=== PATIENT | female | born 1955 | race Caucasian/White ===

== ENCOUNTER 2019-12-20 17:09 | Emergency (ER) | payer MEDICARE, SELFPAY ==
[2019-12-20 17:11] VITALS: BP 178/86; PULSE 79; RESP 20; TEMP 36.5; O2SAT 99; BMI 37.0
--- NOTE | 2019-12-20 17:18 | DI.RAD.S_ITS ---
PROCEDURE: XR CHEST 2V INDICATIONS: Cough,SOB TECHNIQUE: 2 views of the chest were acquired. COMPARISON: None. FINDINGS: Surgical changes and devices: None. Lungs and pleura: Lungs are mildly hyperlucent and hyperinflated but clear. No pleural effusions or pneumothorax. Mediastinum: Mediastinal contours demonstrate mild central arterial prominence, no central venous congestion, and a chronic moderate size hiatal hernia. Heart size is normal. Bones and chest wall: No suspicious bony abnormalities. Soft tissues appear unremarkable. IMPRESSION: 1. Changes of mild emphysema. 2. No acute cardiopulmonary disease. 3. Moderate-sized chronic hiatal hernia. Dictated by: Gabriela Soto M.D. on 12/20/2019 at 17:33 Approved by: Gabriela Soto M.D. on 12/20/2019 at 17:39
[2019-12-20 17:58] LABS: Influenza A - CEPHEID Flu A NEGATIVE (NEGATIVE); Influenza B - CEPHEID Flu B NEGATIVE (NEGATIVE)
--- NOTE | 2019-12-20 18:36 | ED_ITS ---
HPI - General Adult General Chief complaint: Upper Respiratory Symptoms Stated complaint: LUNGS ARE PRODUCING MUCUS STIFF NECK COUGH Time Seen by Provider: 12/20/19 18:04 Source: patient Mode of arrival: Ambulatory Limitations: no limitations History of Present Illness HPI narrative: Six days of flu-like symptoms. Cough and chest congestion. Low- grade fevers at home. Concern for COVID-19. Related Data Previous Rx's Medication Instructions Recorded amoxicillin 500 mg PO TID 5 Days #15 cap 12/20/19 Allergies Allergy/AdvReac Type Severity Reaction Status Date / Time No Known Drug Allergies Allergy Verified 12/20/19 17:18 Review of Systems Constitutional Constitutional: Reports fatigue and Reports fever(s) Cardiovascular Cardiovascular: Denies chest pain and Denies dyspnea Respiratory Respiratory: Reports chest congestion, Reports cough and Denies dyspnea Gastrointestinal Gastrointestinal: Denies vomiting Integumentary/Breasts Skin/Breast: Denies rash Neurologic Neurologic: Denies behavioral changes Psychiatric Psychiatric: Denies behavioral changes Endocrine Endocrine: Reports fatigue Hematologic/Lymphatic Hematologic/Lymphatic: Denies easy bleeding and Denies easy bruising Patient History Medical History Patient denies medical problems (Acute) Social History Smoking Status: Former smoker Smoking Status: Former smoker alcohol intake frequency: 3 or more drinks per day Alcohol type: wine Substance Use Type: does not use Exam Initial Vital Signs Initial Vital Signs: Vital Signs Temperature 97.7 F 12/20/19 17:11 Pulse Rate 79 12/20/19 17:11 Respiratory Rate 20 12/20/19 17:11 Blood Pressure 178/86 H 12/20/19 17:11 Pulse Oximetry 99 12/20/19 17:11 Const General: cooperative, comfortable and well developed Limitations: mental status not altered HENMT Head: normal to inspection and normocephalic Resp Effort & Inspection: normal respiratory effort Auscultation: clear to auscultation bilaterally Cardio Rate: regular rate Rhythm: regular rhythm GI Inspection: non-distended Palpation: soft Skin Lesions: no lesions Rashes: no rashes Neuro General: alert, awake and oriented x3 Cognition: normal cognition Speech: speech normal Extrem General: normal to inspection and capillary refill normal Psych Appearance: grossly normal and well kempt Course Orders Ordered: ED Orders 12/20/19 17:18 Chest [XR chest 2V] Stat 12/20/19 17:20 Influenza A & B (PCR) Stat Vital Signs Vital signs: Vital Signs - 8 hr 12/20/19 17:11 Temperature 97.7 F Pulse Rate 79 Respiratory Rate 20 Blood Pressure 178/86 H Pulse Oximetry 99 Medical Decision Making Lab Data Lab results reviewed: Yes I reviewed the patient's lab results. Labs: Lab Results 12/20/19 Range/Units 17:20 Influenza A (RT-PCR) Flu a negative (NEGATIVE) Influenza B (RT-PCR) Flu b negative (NEGATIVE) Imaging Data Chest x-ray: Radiologist's Impression: [address] [address] XRay Report Signed Patient: Brenda Finley VMR#: [id number] : 3Acct:[id number] Age/Sex: 64 / FDate of Service: 12/20/19 Loc: ED Accession Number: [id number] Procedure: XR chest 2V Ordering Provider: Rachel Sewell MD PROCEDURE: XR CHEST 2V INDICATIONS: Cough,SOB TECHNIQUE: 2 views of the chest were acquired. COMPARISON: None. FINDINGS: Surgical changes and devices: None. Lungs and pleura: Lungs are mildly hyperlucent and hyperinflated but clear. No pleural effusions or pneumothorax. Mediastinum: Mediastinal contours demonstrate mild central arterial prominence, no central venous congestion, and a chronic moderate size hiatal hernia. Heart size is normal. Bones and chest wall: No suspicious bony abnormalities. Soft tissues appear unremarkable. IMPRESSION: 1. Changes of mild emphysema. 2. No acute cardiopulmonary disease. 3. Moderate-sized chronic hiatal hernia. Dictated by: Gabriela Soto M.D. on 12/20/2019 at 17:33 Approved by: Gabriela Soto M.D. on 12/20/2019 at 17:39 MDM Narrative Medical decision making narrative: Nontoxic appearing. Chest x-ray shows no signs of pneumonia. No indication for antibiotics. We did test for COVID-19. Patient was instructed to self quarantine. She expressed understanding and agreement with plan Discharge Plan Departure Patient Disposition: Home Clinical Impression: Upper respiratory infection Qualifiers: URI type: unspecified URI Qualified Code(s): J06.9 - Acute upper respiratory infection, unspecified Discharge Date/Time: 12/20/19 18:58 Instructions: DI for Viral Upper Respiratory Infection -- Adult Activity Restrictions/Additional Instructions: You were tested for COVID-19 today. This result can take it 2-5 days to return. Until then I do recommend that you avoid contact with other individuals. Be sure to wash your hands frequently. Even if this test is negative you most likely have another respiratory infection and the recommendations for avoiding other individuals and washing hands frequently still stands. Hold on taking the antibiotics for now and use them like we discussed. Contact her primary provider for follow-up. Prescriptions: New amoxicillin 500 mg capsule 500 mg PO TID 5 Days Qty: 15 RF: 0
[2019-12-20 18:57] VITALS: BP 147/78; PULSE 78; RESP 18; O2SAT 100
[2019-12-24 21:36] LABS: COVID19 Sendout Not Detected (Not Detected)
== END 2019-12-20 18:58 | disposition home or self-care (01) ==
PROVIDERS: Emergency Medicine; Emergency Provider Emergency Medicine
DX: J06.9 Acute upper respiratory infection, unspecified (principal); R05 Cough; R06.02 Shortness of breath; R50.9 Fever, unspecified; R53.83 Other fatigue
CPT/HCPCS: 71046; 87502; 87635; 99281; 99283